=== PATIENT | female | born 1995 | race African-American/Black ===

== ENCOUNTER 2019-03-19 09:43 | Emergency (ER) | payer OTHER ==
[~2019-03-19] VITALS: Ht 160 cm; Wt 86.2 kg
--- NOTE | 2019-03-19 09:43 | NUR ---
ED Nurse Note: Pt brought in by ambulance. Pt reported that she hurt her lower back from physical exercise and is unable to bend or twist without severe pain 12/06. Pt denies numbness or tingling in extremities. No visible bruising or discoloration to lower back.
[2019-03-19] MEDS ORDERED: ALBUTEROL SULF8.5 GM INH (09:46)
--- NOTE | 2019-03-19 09:47 | NUR ---
ED Nurse Note: ERMD at bedside
[2019-03-19 09:53] VITALS: BP 110/63
[2019-03-19] MEDS ORDERED: Cyclobenzaprine 10mg Tab ORAL ONE (10:15)
--- NOTE | 2019-03-19 10:28 | Emergency Room Report ---
History of Present Illness General Chief Complaint: Lower Back Pain or Injury Source: Patient, EMS Present Illness HPI 19-year-old female presenting with low back pain. Patient reported she was working out doing multiple [employer] when she had minimal pain. She did not think much of it. She laid down flat on the ground. And she reported she has been unable to stand ever since then. Patient denies any fevers, chills, nausea , vomiting, urinary complaints, headache, head injury, loss of consciousness. She denies any lower extremity weakness. She is able to walk. She denies any urinary or bowel incontinence . No prior injuries or trauma Allergies: Coded Allergies: SUMATRIPTAN (Verified Allergy, Unknown, 03/19/19) Patient History Last Menstrual Period: 03/11/2019 Nursing Documentation-[facility] Past Medical History: No Stated History Hx Asthma: Yes Review of Systems Constitutional: Denies: chills, fever Respiratory: Denies: cough, shortness of breath Cardiovascular: Denies: chest pain, palpitations Gastrointestinal: Denies: diarrhea, vomiting Genitourinary: Denies: hematuria, pain Musculoskeletal: Reports: back pain; Denies: joint swelling Skin: Denies: rash, lesions Neurological: Denies: headache, dizziness Physical Exam Vital Signs Date Time Temp Pulse Resp B/P (MAP) Pulse Ox O2 Delivery O2 Flow Rate FiO2 03/19/19 09:43 98.2 86 15 105/63 (77) 96 Room Air Sp02 EP Interpretation: reviewed General Appearance: well appearing, no apparent distress, non-toxic Head: normocephalic, atraumatic Eyes: bilateral eye normal inspection ENT: hearing grossly normal, EOM grossly intact, moist mucus membranes Neck: supple Respiratory: lungs clear, normal breath sounds, no respiratory distress, speaking full sentences Cardiovascular #1: regular rate, rhythm, normal capillary refill Cardiovascular #2: 2+ radial (R), 2+ radial (L) Gastrointestinal: soft, non-distended Rectal: deferred Musculoskeletal: normal inspection, decreased range of motion, no calf tenderness, pelvis stable, moves extm spontaneously, no lower extremity edema, tender - Tenderness over lumbar spine over L4-L5 on palpation in midline. And laterally. No decrease in sensation. Patient has full range of motion in bilateral lower extremities. Neurologic: alert, motor strength/tone normal, oriented x3, sensory intact, grossly normal, other - Negative straight leg raise today except Psychiatric: mood/affect normal Skin: warm/dry, normal turgor Medical Decision Making Diagnostic Impression: Primary Impression: Low back pain ER Course 23-year-old female presents with back pain status post working out. Reporting increasing pain with movement. No bowel changes, urinary changes. No change in sensation. Differential includes spinal disc disease, spinal stenosis, cauda equina syndrome, musculoskeletal pain. Doubt cauda equina syndrome as patient has no neurological symptoms, deficits. Patient did not try any medications for pain control. Will order ibuprofen and x-rays to evaluate for acute injury. Other X-Ray Diagnostic Results Other X-Ray Diagnostic Results : X-Ray ordered: Lumbar sacral x-ray # of Views/Limited Vs Complete: 3 View EP Interpretation: Yes PA Xray: Interpretation reviewed Interpretation: no dislocation, no soft tissue swelling, no fractures PA Scribe Text Final Report EXAM: XR Lumbosacral Spine, 2 or 3 Views CLINICAL HISTORY: PAIN TECHNIQUE: Frontal and lateral views of the lumbar spine and sacrum. COMPARISON: None FINDINGS: Bones: No vertebral body height loss. No subluxation. Soft tissues: No acute finding. IMPRESSION: No acute abnormality. Last Vital Signs Date Time Temp Pulse Resp B/P (MAP) Pulse Ox O2 Delivery O2 Flow Rate FiO2 03/19/19 09:53 98.2 71 14 110/63 100 Room Air Reevaluation Impression Patient symptoms improved with meds Patient is stable for outpatient follow-up and discharge as she has no red flags concerning for acute injury at this time. Discussed with patient if she has worsening symptoms to return to emergency room. Recommended to have follow- up with orthopedist, primary care doctor in 2 to 3 days. Disposition: HOME, SELF-CARE Condition: Stable Referrals: [facility]ERR[facility] (PCP) Patient Instructions: Lumbosacral Strain, Back Pain, Adult Additional Instructions: Recommend to follow-up with primary care doctor in 2 to 3 days for reevaluation. Carlos Orozco M.D. Mar 19, 2019 10:27
--- NOTE | 2019-03-19 10:43 | NUR ---
ED Nurse Note: Pt taken to xray in stable condition
--- NOTE | 2019-03-19 10:43 | NUR ---
Note robin in EDM - 03/19/19 at 1054 by [email or web address] ED Nurse Note: Pt brought in by ambulance. Pt reported that she hurt her lower back from physical exercise and is unable to bend or twist without severe pain 12/06. Pt denies numbness or tingling in extremities. No visible bruising or discoloration to lower back.
--- NOTE | 2019-03-19 10:47 | NUR ---
Nancy kelly in EDM - 03/19/19 at 1055 by SAL ED Nurse Note: ERMD at bedside
--- NOTE | 2019-03-19 11:00 | NUR ---
ED Nurse Note: Pt returned from xray in stable condition
[2019-03-19 12:55] VITALS: BP 118/64
[2019-03-19 13:00] VITALS: BP 110/63
--- NOTE | 2019-03-19 13:00 | NUR ---
ER DISCHARGE NOTE: Patient is cleared to be discharged per ERMD, pt is aox4, on room air, with stable vital signs. pt was given dc instructions, pt was able to verbalize understanding, pt is able to ambulate with steady gait. pt took all belongings.
--- NOTE | 2019-03-19 13:18 | Diagnostic Imaging Report ---
EXAM: XR Lumbosacral Spine, 2 or 3 Views CLINICAL HISTORY: PAIN TECHNIQUE: Frontal and lateral views of the lumbar spine and sacrum. COMPARISON: None FINDINGS: Bones: No vertebral body height loss. No subluxation. Soft tissues: No acute finding. IMPRESSION: No acute abnormality.
== END 2019-03-19 13:00 | disposition home or self-care (01) ==
LOC: EDBD 09:43 → EMR 10:09
DX: M54.5 Low back pain (principal)
CPT/HCPCS: 72020; 81025; Z7502; 99283